=== PATIENT | female | born 1960 | race Two or more races ===

== ENCOUNTER 2016-12-22 12:03 | Emergency (ER) | payer OTHER ==
[~2016-12-22] VITALS: Ht 162.6 cm; Wt 77.0 kg
[2016-12-22] MEDS ORDERED: KETOROLAC 60MG/2ML VIAL IM ONE (14:45)
[2016-12-22] MEDS ORDERED: MORPHINE SULFATE 4 MG/ML CPJ (NOT FOR IM USE) IV ONE (15:15)
[2016-12-22] MEDS ORDERED: ONDANSETRON HCL 4MG/2ML VIAL IV ONE (15:15)
[2016-12-22 16:00] VITALS: BP 133/71
== END 2016-12-22 17:30 | disposition home or self-care (01) ==
LOC: ER 14:42
DX: M75.31 Calcific tendinitis of right shoulder (principal); E03.9 Hypothyroidism, unspecified; Z90.49 Acquired absence of other specified parts of digestive tract
CPT/HCPCS: 73030; 96372; 96374; 96375; 99284; J1885; J2270; J2405; Z7610